=== PATIENT | female | born 1960 | race Caucasian/White ===

== ENCOUNTER 2016-03-20 09:12 | Inpatient (IN) | payer BC ==
[2016-03-20] VITALS (14 sets, daily range): BP systolic 78–107; BP diastolic 54–79; PULSE 71–178; RESP 17–37; TEMP 98.9–99.4; O2SAT 97–100
[~2016-03-20] VITALS: Ht 162.6 cm; Wt 42.6 kg
[2016-03-20] MEDS ORDERED: ACETAMINOPHEN 500 MG TABLET PO ONE (09:30)
[2016-03-20] MEDS ORDERED: DILTIAZEM HCL 25 MG/5 ML VIAL IVP ONE ×2 (09:30→09:45)
[2016-03-20] MEDS ORDERED: DILTIAZEM HCL 125 MG/25 ML VIAL IV ONE (09:33)
[2016-03-20] MEDS ORDERED: DILTIAZEM HCL 125 MG in D5W 100 ML IV ONE (09:45)
[2016-03-20] MEDS ORDERED: NACL 0.9% 1,000 ML IV ONE ×2 (09:45)
[2016-03-20 09:53] LABS: BASOPHILS # (AUTO) 0.1 K/uL (0.0-0.2); BASOPHILS % (AUTO) 0.7 % (0.0-2.0); EOSINOPHILS % (AUTO) 0.3 % (0.0-4.0); HEMATOCRIT 46.2 % (36-48); LYMPHOCYTES # (AUTO) 2.8 K/uL (1.0-5.5); MEAN CORPUSCULAR HEMOGLOBIN 30 pg (27-31); MEAN CORPUSCULAR HGB CONC 33 % (32-36); MEAN CORPUSCULAR VOLUME 92 fL (79.0-98.0); MONOCYTES # (AUTO) 2.1 K/uL (0.0-1.0); MONOCYTES % (AUTO) 14.3 % (1.7-9.3); NEUTROPHILS # (AUTO) 9.8 K/uL (1.8-7.7); NEUTROPHILS % (AUTO) 65.7 % (40.0-70.0); PLATELET COUNT (AUTO) 231 K/uL (130-430); RED BLOOD CELL COUNT(AUTO) 5.02 MIL/uL (4.2-6.2); RED CELL DISTRIBUTION WIDTH 13.6 % (9.0-15.0); WHITE BLOOD COUNT (AUTO) 14.8 K/uL (4.8-10.8)
[2016-03-20 10:05] LABS: ANION GAP 17 (5-15); CALCIUM 9.8 mg/dL (8.4-11.0); CHLORIDE 100 mmol/L (98-107); CREATININE 0.94 mg/dL (0.55-1.30); GLUCOSE 141 mg/dL (70-99); POTASSIUM 3.4 mmol/L (3.5-5.1); SODIUM SERUM 140 mmol/L (136-145); UREA NITROGEN, BLOOD 18 mg/dL (8-21)
[2016-03-20 10:08] LABS: GFR AFRICAN AMERICAN 79 mL/min (>90); INR 1.1 (0.8-1.2); PROTHROMBIN TIME 11.8 SECS (9.5-12.5)
[2016-03-20 10:14] LABS: ALANINE AMINOTRANSFERASE 22 U/L (12-78); ALBUMIN 4.4 g/dL (3.4-4.8); ASPARTATE AMINOTRANSFERASE 26 U/L (10-37); TOTAL PROTEIN, SERUM 8.4 g/dL (6.4-8.3)
[2016-03-20] MEDS ORDERED: ALEN10TA6 PO (10:34)
[2016-03-20] MEDS ORDERED: METH2.5T PO (10:34)
[2016-03-20] MEDS ORDERED: ADAL40PE SQ (10:34)
[2016-03-20] MEDS ORDERED: FOLI-43 PO (10:34)
[2016-03-20 10:59] LABS: BILIRUBIN,URINE 1+ (NEGATIVE); BLOOD, URINE 3+ (NEGATIVE); CLARITY/URINE HAZY (CLEAR); COLOR,URINE AMBER (YELLOW); GLUCOSE,URINE NEGATIVE (NEGATIVE); KETONES,URINE 3+ (NEGATIVE); LEUKOCYTE ESTERASE ,URINE 1+ (NEGATIVE); NITRITE, URINE NEGATIVE (NEGATIVE); PROTEIN URINE 1+ (NEGATIVE); UROBILINOGEN,URINE 0.2 (0.2-1.0)
[2016-03-20] MEDS ORDERED: cefTRIAXone 1 GM in D5W 50 ML IV ONE (11:00)
[2016-03-20] MEDS ORDERED: DILTIAZEM HCL 125 MG in D5W 100 ML IV SCH ×2 (11:00→22:00)
[2016-03-20] MEDS ORDERED: cefTRIAXone 1 GM VIAL ONE (11:04)
[2016-03-20 11:06] LABS: BACTERIA,URINE MODERATE /HPF (None Seen); MUCUS,URINE 1+ /LPF (None Seen); RBC,URINE >100 /HPF (0-3)
[2016-03-20] MEDS: MORPHINE 2 MG/ML INJ. SYRINGE IVP PRN (19:07)
[2016-03-20] MEDS: SOTALOL HCL 80 MG TABLET PO SCH (21:00)
[2016-03-20] MEDS ORDERED: COMMUNICATION ORDER XX ONE (21:30)
[2016-03-20] MEDS: DILTIAZEM HCL 125 MG in D5W 100 ML IV SCH (22:00)
[2016-03-21] VITALS (13 sets, daily range): BP systolic 93–128; BP diastolic 53–72; PULSE 73–89; RESP 17–30; TEMP 97.9–100.3; O2SAT 98–100
[2016-03-21 06:11] LABS: BASOPHILS % (AUTO) 0.4 % (0.0-2.0); EOSINOPHILS % (AUTO) 0.5 % (0.0-4.0); HEMATOCRIT 36.2 % (36-48); LYMPHOCYTES # (AUTO) 1.4 K/uL (1.0-5.5); LYMPHOCYTES % (AUTO) 16.5 % (20.5-51.5); MEAN CORPUSCULAR HEMOGLOBIN 31 pg (27-31); MEAN CORPUSCULAR HGB CONC 33 % (32-36); MEAN CORPUSCULAR VOLUME 92 fL (79.0-98.0); MONOCYTES # (AUTO) 1.1 K/uL (0.0-1.0); MONOCYTES % (AUTO) 13.2 % (1.7-9.3); NEUTROPHILS # (AUTO) 5.7 K/uL (1.8-7.7); NEUTROPHILS % (AUTO) 69.4 % (40.0-70.0); PLATELET COUNT (AUTO) 183 K/uL (130-430); RED BLOOD CELL COUNT(AUTO) 3.93 MIL/uL (4.2-6.2); RED CELL DISTRIBUTION WIDTH 13.3 % (9.0-15.0); WHITE BLOOD COUNT (AUTO) 8.2 K/uL (4.8-10.8)
[2016-03-21] MEDS: MORPHINE 2 MG/ML INJ. SYRINGE IVP PRN (06:28)
[2016-03-21 07:02] LABS: ALBUMIN 3.3 g/dL (3.4-4.8); CALCIUM 8.6 mg/dL (8.4-11.0); CREATININE 0.41 mg/dL (0.55-1.30); POTASSIUM 3.3 mmol/L (3.5-5.1); TOTAL BILIRUBIN 0.7 mg/dL (0.0-1.0); TOTAL PROTEIN, SERUM 6.8 g/dL (6.4-8.3)
[2016-03-21] MEDS: SOTALOL HCL 80 MG TABLET PO SCH (09:00)
[2016-03-21] MEDS: DILTIAZEM HCL 125 MG in D5W 100 ML IV SCH (10:00)
[2016-03-21] MEDS ORDERED: POTASSIUM CHLORIDE 20 MEQ TAB.PRT.SR PO ONE (12:45)
[2016-03-21] MEDS ORDERED: ASPIRIN 81 MG TAB.CHEW PO ONE (13:00)
[2016-03-22] MEDS ORDERED: ASPIRIN 81 MG TAB.CHEW PO SCH (09:00)
== END 2016-03-21 13:10 | disposition left against medical advice (07) | DRG 309 ==
LOC: SED 09:12 → SIC 10:47
PROVIDERS: ADMIT Internal Medicine Hospice and Palliative Medicine; ATTEND Internal Medicine Hospice and Palliative Medicine
DX: I48.0 Paroxysmal atrial fibrillation (principal); D68.69 Other thrombophilia; I47.1 Supraventricular tachycardia; M06.9 Rheumatoid arthritis, unspecified; M19.90 Unspecified osteoarthritis, unspecified site; F17.210 Nicotine dependence, cigarettes, uncomplicated; F12.90 Cannabis use, unspecified, uncomplicated; Z87.442 Personal history of urinary calculi; Z53.21 Procedure and treatment not carried out due to patient leaving prior to being seen by health care provider; Z88.2 Allergy status to sulfonamides; F41.9 Anxiety disorder, unspecified
CPT/HCPCS: 36415; 71010; 73564; 80053; 81000-TC; 83605; 83735-TC; 84443-TC; 84484; 85025; 85610-TC; 85730-TC; 87040-TC; 87081; 87086; 93005; 93306; 96361; 96365; 96375; 99291; J0696; J2270; J3490; J7030; J7060

== ENCOUNTER 2016-07-28 09:53 | Emergency (ER) | payer BC ==
[~2016-07-28] VITALS: Ht 162.6 cm; Wt 44.0 kg
[2016-07-28 09:53] VITALS: BP_SYST 130
[~2016-07-28 09:53] MED LIST: ADAL40PE SQ; ALEN10TA6 PO; FOLI-43 PO; METH2.5T PO
--- NOTE | 2016-07-28 09:53 | NUR ---
Pt placed to ER bed 05. Pt here for pre-op for left knee surgery (Left knee orthroscopy, irrigation/debridement, synovectomy.) Pt s/p injury to Left knee from a dog striking her left ankle back in March. Pt ambulatory, limping gait. No deformity noted to Left knee, swelling noted.
--- NOTE | 2016-07-28 10:00 | NUR ---
Dr. Young at bedside to assess pt.
--- NOTE | 2016-07-28 10:15 | NUR ---
Dr. Flores at bedside.
--- NOTE | 2016-07-28 10:30 | NUR ---
Lab at bedside.
[2016-07-28 10:45] VITALS: BP_SYST 128
--- NOTE | 2016-07-28 10:45 | NUR ---
Patient given written and verbal discharge instructions and verbalizes understanding. ER MD discussed with patient the results and treatment provided. Patient in stable condition. ID arm band removed. Patient educated on pain management and to follow up with PMD. Pain Scale 5/10. Opportunity for questions provided and answered.
[2016-07-28 11:09] LABS: EOSINOPHILS % (AUTO) 0.1 % (0.0-4.0); HEMOGLOBIN 15.2 g/dL (12.0-16.0)
[2016-07-28 11:14] LABS: ANION GAP 10 (5-15); CALCIUM 9.3 mg/dL (8.4-11.0); CHLORIDE 103 mmol/L (98-107); CREATININE 0.67 mg/dL (0.55-1.30); GLUCOSE 99 mg/dL (70-99); POTASSIUM 3.7 mmol/L (3.5-5.1); SODIUM SERUM 138 mmol/L (136-145); UREA NITROGEN, BLOOD 16 mg/dL (8-21)
[2016-07-28 11:17] LABS: BASOPHILS # (AUTO) 0.1 K/uL (0.0-0.2); BASOPHILS % (AUTO) 0.4 % (0.0-2.0); HEMATOCRIT 47.5 % (36-48); LYMPHOCYTES # (AUTO) 1.6 K/uL (1.0-5.5); LYMPHOCYTES % (AUTO) 8.4 % (20.5-51.5); MEAN CORPUSCULAR HEMOGLOBIN 30 pg (27-31); MEAN CORPUSCULAR HGB CONC 32 % (32-36); MEAN CORPUSCULAR VOLUME 93 fL (79.0-98.0); MONOCYTES # (AUTO) 1.2 K/uL (0.0-1.0); MONOCYTES % (AUTO) 6.1 % (1.7-9.3); NEUTROPHILS # (AUTO) 16.2 K/uL (1.8-7.7); PLATELET COUNT (AUTO) 288 K/uL (130-430); RED BLOOD CELL COUNT(AUTO) 5.12 MIL/uL (4.2-6.2); RED CELL DISTRIBUTION WIDTH 16.3 % (9.0-15.0); WHITE BLOOD COUNT (AUTO) 19.1 K/uL (4.8-10.8)
[2016-07-28 11:24] LABS: C-REACTIVE PROTEIN QUANT < 0.2 mg/dL (0-0.5); GFR AFRICAN AMERICAN 117 mL/min (>90)
[2016-07-28 11:59] LABS: ERYTHROCYTE SEDIMENTATION RATE 2 MM/HR (0-20)
== END 2016-07-28 10:45 | disposition home or self-care (01) ==
LOC: SED 09:54
DX: M25.562 Pain in left knee (principal); M06.9 Rheumatoid arthritis, unspecified; Z88.2 Allergy status to sulfonamides
CPT/HCPCS: 36415; 80048; 85025; 85610-TC; 85651-TC; 85730-TC; 86140; 93005; 99285